=== PATIENT | male | born 1990 | race Caucasian/White ===

== ENCOUNTER 2017-10-12 14:10 | Emergency (ER) | payer BC, MEDICAID ==
--- NOTE | 2017-10-12 14:23 | EDM.PDOC ---
ED HPI GENERAL MEDICAL PROBLEM - General Chief Complaint: Skin Complaint Stated Complaint: BUMPS IN PRIVATE AREA [id number] Time Seen by Provider: 10/12/17 14:22 Source of Information: Reports: Patient, RN, RN Notes Reviewed History Limitations: Reports: No Limitations - History of Present Illness INITIAL COMMENTS - FREE TEXT/NARRATIVE: Pt presents to the ER with c/o "bumps on his private area". Patient denies any history of STI, states he is and only has sex with his . Patient denies penile discharge, itching, fever, chills, N/V/D. Patient admits to shaving the area at times. Pt states he just noticed the bumps in the area today. Onset: Today - Related Data Allergies Allergy/AdvReac Type Severity Reaction Status Date / Time No Known Allergies Allergy Verified 10/12/17 14:16 Home Meds: Home Meds . [No Known Home Meds] 10/12/17 [History] Past Medical History - Past Health History Medical/Surgical History: Denies Medical/Surgical History Social & Family History - Tobacco Use Smoking Status *Q: Never Smoker Second Hand Smoke Exposure: No - Recreational Drug Use Recreational Drug Use: No ED ROS GENERAL - Review of Systems Review Of Systems: ROS reveals no pertinent complaints other than HPI. ED EXAM, SKIN/RASH Exam: See Below Exam Limited By: No Limitations General Appearance: Alert, WD/WN, No Apparent Distress Eye Exam: Bilateral Eye: EOMI, Normal Inspection, PERRL Ears: Normal External Exam, Hearing Grossly Normal Nose: Normal Inspection Throat/Mouth: Normal Inspection, Normal Voice, No Airway Compromise Head: Atraumatic, Normocephalic Neck: Normal Inspection, Supple, Non-Tender, Full Range of Motion Respiratory/Chest: No Respiratory Distress, Lungs Clear, Normal Breath Sounds, No Accessory Muscle Use, Chest Non-Tender Cardiovascular: Normal Peripheral Pulses, Regular Rate, Rhythm, No Edema, No Gallop, No JVD, No Murmur, No Rub Peripheral Pulses: 2+: Radial (L), Radial (R) GI/Abdominal: Normal Bowel Sounds, Soft, Non-Tender, No Organomegaly, No Distention, No Abnormal Bruit, No Mass (Male) Exam: Deferred Rectal (Males) Exam: Deferred Back Exam: Normal Inspection, Full Range of Motion, NT Extremities: Normal Inspection, Normal Range of Motion, Non-Tender, No Pedal Edema, Normal Capillary Refill Neurological: Alert, Oriented, CN II-XII Intact, Normal Cognition, Normal Gait, Normal Reflexes, No Motor/Sensory Deficits Psychiatric: Normal Affect, Normal Mood Skin: Warm, Dry, Normal Color, Rash Location, Skin: Abdomen, Genital Characteristics: Other (individual areas of flesh appearing lesions with dome shape appearance with central umbilication, no erythema or drainage to these lesions. Few spots are opened and scabbed.) Associated features: No: Warmth, Tenderness, Swelling, Induration, Scaling, Lymphangitis, Inflammation, Crusting, Weeping, Rough Lymphatic: No Adenopathy Course - Vital Signs Last Recorded V/S: Last Vital Signs Temp 98.5 F 10/12/17 14:13 Pulse 119 H 10/12/17 14:13 Resp 18 10/12/17 14:13 BP 171/106 H 10/12/17 14:13 Pulse Ox 99 10/12/17 14:13 Departure - Departure Time of Disposition: 14:35 Disposition: Home, Self-Care 01 Condition: Good Clinical Impression: Molluscum contagiosum infection - Discharge Information Instructions: Molluscum Contagiosum, Adult Forms: ED Department Discharge Additional Instructions: Over the Counter Benzoyl Peroxide 10% twice daily for 3-4 weeks Follow up with your primary care facility Refrain from sex until lesions are cleared up
== END 2017-10-12 14:40 | disposition home or self-care (01) ==
LOC: DL.ED 14:10
DX: B08.1 Molluscum contagiosum (principal)
CPT/HCPCS: 99282

== ENCOUNTER 2018-02-20 21:05 | Emergency (ER) | payer MEDICAID ==
--- NOTE | 2018-02-20 21:20 | EDM.PDOC ---
ED HPI GENERAL MEDICAL PROBLEM - General Chief Complaint: Laceration Stated Complaint: POSSIBLE STITCHES NEEDED IN FOOT [id number] Time Seen by Provider: 02/20/18 21:20 Source of Information: Reports: Patient, RN, RN Notes Reviewed History Limitations: Reports: No Limitations - History of Present Illness INITIAL COMMENTS - FREE TEXT/NARRATIVE: Pt to ER with c/o laceration between the first and second toes of the left foot. Patient states he was playing lawn darts when a sharp metal dart landed on his foot. Patient states he is unsure of when his last tetanus vaccination was. Onset: Today, Sudden Left 2-Long toe Pain Score (Numeric/FACES): 2 - Related Data Allergies Allergy/AdvReac Type Severity Reaction Status Date / Time No Known Allergies Allergy Verified 10/12/17 14:16 Home Meds: Home Meds . [No Known Home Meds] 10/12/17 [History] Past Medical History - Past Health History Medical/Surgical History: Denies Medical/Surgical History Social & Family History - Tobacco Use Smoking Status *Q: Never Smoker ED ROS GENERAL - Review of Systems Review Of Systems: ROS reveals no pertinent complaints other than HPI. ED EXAM, SKIN/RASH Exam: See Below Exam Limited By: No Limitations General Appearance: Alert, WD/WN, No Apparent Distress Eye Exam: Bilateral Eye: EOMI, Normal Inspection Ears: Normal External Exam, Hearing Grossly Normal Nose: Normal Inspection Throat/Mouth: Normal Inspection, Normal Voice, No Airway Compromise Head: Atraumatic, Normocephalic Neck: Normal Inspection, Full Range of Motion Respiratory/Chest: No Respiratory Distress, Lungs Clear, Normal Breath Sounds, No Accessory Muscle Use, Chest Non-Tender Cardiovascular: Normal Peripheral Pulses, Regular Rate, Rhythm, No Edema, No Gallop, No JVD, No Murmur, No Rub Peripheral Pulses: 2+: Radial (L), Radial (R), Dorsalis Pedis (L), Dorsalis Pedis (R) GI/Abdominal: Normal Bowel Sounds, Soft, Non-Tender (Male) Exam: Deferred Rectal (Males) Exam: Deferred Back Exam: Normal Inspection, Full Range of Motion Extremities: Normal Inspection, Normal Range of Motion, Non-Tender, No Pedal Edema, Normal Capillary Refill Neurological: Alert, Oriented, CN II-XII Intact, Normal Cognition, Normal Gait, Normal Reflexes, No Motor/Sensory Deficits Psychiatric: Normal Affect, Normal Mood Skin: Warm, Dry, Other (laceration between the first and second toes of the left foot) Location, Skin: Lower Extremity, Left Characteristics: Linear Lymphatic: No Adenopathy ED SKIN PROCEDURES - Laceration/Wound Repair Left Midline Foot Lac/Wound length In cm: 1.5 Appearance: Subcutaneous Distal NVT: Neuro & Vascular Intact Anesthetic Type: Local Local Anesthesia - Lidocaine (Xylocaine): 1% Plain Local Anesthetic Volume: 5cc Skin Prep: Chlorhexidine (Hibiciens) Exploration/Debridement/Repair: Wound Explored, In a Bloodless Field, Explored to Base, No Foreign Material Found Closed with: Sutures Suture Size: 4-0 # of Sutures: 3 Suture Type: Nylon, Interrupted Drain Placement: No Sterile Dressing Applied: Nurse Tetanus Status Addressed: Yes Complications: No Course - Vital Signs Last Recorded V/S: Last Vital Signs Temp 99.5 F 02/20/18 21:09 Pulse 128 H 02/20/18 21:09 Resp 16 02/20/18 21:09 BP 143/96 H 02/20/18 21:09 Pulse Ox 98 02/20/18 21:09 - Orders/Labs/Meds Orders: Active Orders 24 hr Category Date Time Status Vaccines to be Administered [RC] PER UNIT ROUTINE Care 02/20/18 21:22 Active Meds: Medications Discontinued Medications Generic Name Dose Route Start Last Admin Trade Name Pam PRN Reason Stop Dose Admin Bacitracin 1 dose 02/20/18 21:22 02/20/18 21:50 Bacitracin Oint 1 Gm TOP 02/20/18 21:23 1 dose ONETIME ONE Administration Diphtheria/Tetanus/Acell Pertussis 0.5 ml 02/20/18 21:22 02/20/18 21:47 Adacel IM 02/20/18 21:23 0.5 ml .ONCE ONE Administration Lidocaine HCl 30 ml 02/20/18 21:22 02/20/18 21:50 Xylocaine-Mpf 1% INJECT 02/20/18 21:23 30 ml ONETIME ONE Administration Departure - Departure Time of Disposition: 21:48 Disposition: Home, Self-Care 01 Condition: Good Clinical Impression: Laceration - Discharge Information Instructions: Laceration Care, Adult, [id number], Stitches, [place], or Adhesive Wound Closure, [id number] Forms: ED Department Discharge Additional Instructions: Keep area clean and dry Follow up with your primary care facility in 7-10 days to have sutures removed - My Orders Last 24 Hours: My Active Orders 02/20/18 21:22 Vaccines to be Administered [RC] PER UNIT ROUTINE - Assessment/Plan Last 24 Hours: My Active Orders 02/20/18 21:22 Vaccines to be Administered [RC] PER UNIT ROUTINE
[2018-02-20] MEDS: Diphtheria,Pertussis(Acell),Tetanus Vaccine 0.5 ML SDV IM ONE (21:47)
[2018-02-20] MEDS: Bacitracin Oint 1 GM U/D Packet TOP ONE (21:50)
[2018-02-20] MEDS: Lidocaine 1% 30 ML SDV INJECT ONE (21:50)
== END 2018-02-20 22:00 | disposition home or self-care (01) ==
LOC: DL.ED 21:05
DX: S91.312A Laceration without foreign body, left foot, initial encounter (principal); Z23 Encounter for immunization; W20.8XXA Other cause of strike by thrown, projected or falling object, initial encounter; Y92.096 Garden or yard of other non-institutional residence as the place of occurrence of the external cause
CPT/HCPCS: 12001; 12011; 90471; 90715; 99283